=== PATIENT | female | born 1970 | race Caucasian/White ===

== ENCOUNTER 2022-12-11 10:46 | Day surgery (SDC) | payer OTHER, SELFPAY ==
--- NOTE | 2022-12-11 | PATH_ITS ---
[facility] Accession Number: [id number] No. of containers..04 Tissue . 01 Material submitted: . PART A: jejunum - JEJUNUM PART B: gastrointestinal site - GASTRIC POUCH PART C: colon - DESCENDING COLON PART D: rectosigmoid junction - RECTOSIGMOID . 01 Diagnosis: A. Jejunum, Biopsy: Small bowel-type mucosa with focal erosion, villous blunting, and mildly increased intraepithelial lymphocytes. No dysplasia or malignancy. See comment. . B. Gastric Pouch, Biopsy: Gastric mucosa with minimal chronic nonspecific inflammation. No Helicobacter pylori organisms identified on immunohistochemical evaluation. No intestinal metaplasia, dysplasia, or malignancy identified. . C. Descending Colon, Biopsy: Colonic mucosa with benign lymphoid aggregate, but with no other significant diagnostic alterations. No evidence of colitis or neoplasm. . D. Rectosigmoid, Biopsy: Polypoid colonic mucosa with no neoplasm identified, consistent with mucosal redundancy. No evidence of colitis. [facility] 12/15/2022 1431 Local . 01 Comment: Part A: The findings are non-specific. Differential includes NSAID-induced injury and an infectious etiology. The features also raise the possibility of celiac disease in the appropriate clinical setting.If celiac disease is suspected clinically, correlation with serologic studies is recommended. Clinical correlation is recommended. A repeat biopsy after resolution of inflammation may be helpful for further evaluation and if clinically indicated. . 01 Electronically signed: . Tamiko Lino MD, Pathologist NPI- [id number] . 01 Gross description: . Part A: JEJUNUM: Received in formalin is 1 fragment(s) of ramírez, soft tissue measuring 0.2 x 0.2 x 0.2 cm submitted entirely in 1 cassette(s) Part B: GASTRIC POUCH: Received in formalin are 3 fragment(s) of ramírez, soft tissue measuring 0.1 x 0.1 x 0.1 cm to 0.2 x 0.2 x 0.2 cm submitted entirely in 1 cassette(s) Part C: DESCENDING COLON: Received in formalin are 2 fragment(s) of ramírez, soft tissue measuring 0.1 x 0.1 x 0.1 cm to 0.2 x 0.2 x 0.2 cm submitted entirely in 1 cassette(s) Part D: RECTOSIGMOID: Received in formalin is 1 fragment(s) of ramírez, soft tissue measuring 0.3 x 0.3 x 0.3 cm submitted entirely in 1 cassette(s) /LOIDA 12/12/2022 1832 Local . 01 Microscopic: . B. An immunohistochemical stain was performed to evaluate for Helicobacter organisms and is negative. The control stain showed appropriate reactivity. . * This test was developed and its performance characteristics determined by [facility]. It has not been cleared or approved by the U.S. Food and Drug Administration. The FDA has determined that such clearance or approval is not necessary. This test is used for clinical purposes. It should not be regarded as investigational or for research. . 01 Pathologist provided ICD-10: K29.80, K31.89, K29.30, K63.89 . 01 CPT . 412098, 052413, 952795, 929516, P30658 Specimen Comment: A courtesy copy of this report has been sent to [phone] Performed at: 01 [facility] [address] [place] [address], [place], [place] [id number] MD Reuben Alex MD Phone: [phone]
[2022-12-11 11:26] VITALS: BP 129/82; PULSE 94; RESP 17; TEMP 36.2; O2SAT 100; BMI 34.4
--- NOTE | 2022-12-11 11:34 | P.HP_ITS ---
History of Present Illness History of Present Illness Date Patient Seen: 12/11/22 Time Patient Seen: 11:34 Chief complaint: EGD/Colonoscopy Narrative: I reviewed my recent office note. No significant changes. PFSH Medical History Pacemaker Surgical History Gastric bypass status for obesity H/O: hysterectomy Hx of tonsillectomy Meds Home Medications and Allergies Home Medications Medication Instructions Recorded Confirmed Type Suboxone 0.02 mg PO DAILY 12/11/22 12/11/22 History amitriptyline 25 mg PO DAILY 12/11/22 12/11/22 History gabapentin 200 mg PO BID 12/11/22 12/11/22 History metoprolol succinate 25 mg PO DAILY 12/11/22 12/11/22 History Allergies Allergy/AdvReac Type Severity Reaction Status Date / Time codeine Allergy Hallucinati Verified 12/11/22 11:24 ng morphine Allergy Hallucinati Verified 12/11/22 11:24 ng Sulfa (Sulfonamide Allergy Rash Verified 12/11/22 11:18 Antibiotics) Review of Systems Review of Systems ROS: Yes All systems reviewed with the patient and are negative except as otherw ise documented Exam Const General: cooperative HENMT Head: normal to inspection Eyes General: appearance normal, both eyes and all related structures Neck Neck: normal visual inspection Chest Chest: normal inspection of the chest Resp Effort & Inspection: normal respiratory effort Cardio Rate: regular rate GI Inspection: normal to inspection Skin General: no rashes or lesions noted Neuro General: patient alert and patient awake Extrem General: normal to inspection and no pedal edema Psych Appearance: grossly normal Assessment & Plan Assessment & Plan narrative: 52-year-old female with a history of gastric bypass, iron-deficiency anemia. EGD and colonoscopy are pursued today.
--- NOTE | 2022-12-11 11:34 | PM.PREOP ---
Pre-operative Note Interval Note History & Physical reviewed/Exam performed by Physician: Yes Changes to H&P: No ASA Class (for procedural sedation): III
[2022-12-11] MEDS: LACTATED RINGERS 1,000 ML 100 ML IV (11:37)
--- NOTE | 2022-12-11 14:04 | P.OP.EGD&C_ITS ---
Operative Date/Time/Diagnoses Date of procedure: 12/11/22 Time of procedure: 14:04 Pre-op diagnosis: Iron-deficiency anemia Post-op diagnosis: same Procedure & Clinicians Study performed: EGD with biopsies and colonoscopy with biopsies and cold snare polypectomy Same procedure as scheduled: Yes Indications: Iron-deficiency anemia Surgeon: Mat Puente Procedure Notes SCOAP/Timeout: Done Procedure in detail: After the risks and benefits were explained, written and verbal informed consent was obtained. The patient was brought into the procedure room and placed into the left lateral decubitus position. Please see anesthesia notes for sedation details. The scope was introduced into the mouth through the bite block and advanced under direct visualization to what appeared to be the efferent limb. The scope was slowly withdrawn carefully examining the mucosa for any defects or lesions. Retroflexed views were accomplished in the stomach. The stomach was decompressed, the scope was then removed from the patient who tolerated the procedure well. The patient was then turned around a digital rectal examination accomplished. The scope was introduced into the rectum and advanced to the cecum as identified by the appendiceal orifice and ileocecal valve. The scope was slowly withdrawn to carefully examine the mucosa for any defects or lesions. Multiple direct views were made through the dentate line for exclusion of pathology. The colon was decompressed scope removed from the patient who tolerated the procedure well. Pediatric colonoscope Bowel prep adequate Scope withdrawal time: 9 minutes Sedation minutes: 34 Complications: none Impression: 1. Esophagus: The squamocolumnar junction correlated with the top of the gastric folds. GEJ was at 35 cm from the incisors. No acute erosive changes no strictures no mass lesions. The esophagus was unremarkable. 2. Gastric pouch: The patient had a normal-sized gastric pouch. The mucosa in the gastric pouch was rather erythematous. Biopsies were acquired for histopathologic analysis and exclusion of H pylori. The GJ anastomosis was widely patent. There was a single retained suture that could be seen on the gastric side. No stenosis. 3. Afferent limb: I could not confidently identify the afferent limb. There ap peared to be some retained food debris in this location in addition to mucosal exudate that appeared to be from a pill that has recently dissolved in this area. This obscured much of the mucosal examination. I therefore could not identify a clear-cut lumen that would be consistent with an afferent limb. 4. Efferent limb colon the exudate and some degree of mucosal friability seemed to extend into what I believe was the afferent limb. A couple of biopsies were taken from the mucosa for histopathologic analysis at this location. 5. Terminal ileum: This appeared visually normal. 6. Colon: There was some mild scattered erythema throughout the left colon. Random biopsies were taken from descending colon for histopathologic analysis. No ulcerations were evident. There was a small 5-6 mm polyp at the rectosigmoid removed with cold snare. The patient had grade 2-3 internal nonbleeding nonthrombosed hemorrhoids. Endoscopic diagnosis 1. Gastric bypass anatomy 2. Friable GJ anastomosis and jejunal mucosa (on the jejunal side of said anastomosis). 3. Nonvisualized afferent limb 4. Gastropathy 5. Colon polyp 6. Hemorrhoids 7. Mild colonic erythema Post-procedure Plan for aftercare: 1. Await histopathology. 2. Contingent on histopathology, repeat EGD in the next 8 weeks would be appropriate to confirm mucosal healing. 3. Timing of repeat colonoscopy will be contingent on polyp histology. Disposition: PACU
[2022-12-11 14:08] VITALS: BP 118/76; PULSE 86; RESP 12; TEMP 36.2; O2SAT 97
[2022-12-11 14:15] VITALS: BP 117/79; PULSE 85; RESP 15; O2SAT 100
[2022-12-11 14:20] VITALS: BP 121/73; PULSE 83; RESP 14; O2SAT 100
[2022-12-11 14:24] VITALS: BP 131/73; PULSE 87; RESP 22; O2SAT 100
== END 2022-12-11 14:42 | disposition home or self-care (01) ==
PROVIDERS: PCP Family Medicine; Referring Provider Internal Medicine Gastroenterology; Visit Provider Internal Medicine Gastroenterology
PROC: 0DJ08ZZ Inspection of Upper Intestinal Tract, Via Natural or Artificial Opening Endoscopic (ICD-10-PCS; CPT 43235; principal; 2022-12-11 12:30)
PROC: 0DJD8ZZ Inspection of Lower Intestinal Tract, Via Natural or Artificial Opening Endoscopic (ICD-10-PCS; CPT 45378; 2022-12-11 12:30)
DX: D50.9 Iron deficiency anemia, unspecified (principal); Z98.84 Bariatric surgery status; K64.2 Third degree hemorrhoids; K31.9 Disease of stomach and duodenum, unspecified; K29.50 Unspecified chronic gastritis without bleeding; K63.5 Polyp of colon
CPT/HCPCS: 45385; 45380; 43239; J2704

== ENCOUNTER 2023-01-22 13:16 | Emergency (ER) | payer OTHER, SELFPAY ==
[2023-01-22 13:23] VITALS: BP 138/82; PULSE 112; RESP 16; TEMP 36.9; O2SAT 99; BMI 33.0
--- NOTE | 2023-01-22 17:34 | ED.BACK ---
HPI - Back Pain/Injury <Yanet Smith PA-C - Last Filed: 01/22/23 18:15> General Chief Complaint: Back Pain/Injury Stated Complaint: pain Lower back down to feet Time Seen by Provider: 01/22/23 13:33 History of Present Illness HPI Narrative: 52-year-old female with chronic lower back pain presents to the ED with 5 days of lower back pain radiating down to bilateral legs. Patient describes the pain as sharp, burning. Patient receives steroid injections every 7 months from her facilities painter for the back pain. Patient received an injection 7 days ago, following which patient started experiencing the lower back pain traveling down her legs. Patient states that prior to the injection, she never had pain traveling down to her legs. Patient denies numbness, tingling, weakness. Patient denies urinary hesitancy, urinary incontinence, bowel incontinence, saddle paresthesias. Patient states that the pain is bad enough that she is unable to bear weight and walk. Patient states that she was able to walk unassisted prior to the injection. Patient talked to her facilities painter earlier today who prescribed her Percocet, however patient did not get any relief from it. It turns out patient is on Suboxone, which is likely why the Percocet was not effective. Patient takes gabapentin currently, however only takes 200 mg once a day. It seems that her PCP has prescribed the gabapentin 400 mg twice a day, which patient was unaware of. Patient talked with her facilities painter earlier today, who sent her to the ED to rule out a spinal emergency. Related Data Home Medications Medication Instructions Recorded Confirmed Suboxone 0.02 mg PO DAILY 12/11/22 12/11/22 amitriptyline 25 mg PO DAILY 12/11/22 12/11/22 gabapentin 200 mg PO BID 12/11/22 12/11/22 metoprolol succinate 25 mg PO DAILY 12/11/22 12/11/22 Previous Rx's Medication Instructions Recorded gabapentin 300 mg capsule 300 mg PO TID #30 caps 01/22/23 Allergies Allergy/AdvReac Type Severity Reaction Status Date / Time codeine Allergy Hallucinati Verified 12/11/22 11:24 ng morphine Allergy Hallucinati Verified 12/11/22 11:24 ng Sulfa (Sulfonamide Allergy Rash Verified 12/11/22 11:18 Antibiotics) Review of Systems <Yanet Smith PA-C - Last Filed: 01/22/23 18:15> Review of Systems ROS Unobtainable: All systems reviewed & are unremarkable except as noted in HPI and below Constitutional Constitutional: Denies chills, Denies fatigue, Denies fever(s), Denies frequent falls, Denies lethargy and Denies weakness Eyes Eyes: Denies change in vision, Denies eye discharge, Denies irritation and Denies loss of vision ENT Ears, Nose, Mouth, and Throat: Denies change in voice, Denies dizziness, Denies neck pain, Denies sore throat and Denies throat swelling Cardiovascular Cardiovascular: Denies chest pain, Denies irregular heart rhythm, Denies lightheadedness, Denies palpitations, Denies dyspnea, Denies dyspnea on exertion and Denies orthopnea Respiratory Respiratory: Denies cough, Denies dyspnea, Denies dyspnea on exertion and Denies wheezing Gastrointestinal Gastrointestinal: Denies abdominal pain, Denies change in bowel habits, Denies diarrhea, Denies nausea and Denies vomiting Genitourinary Genitourinary: Denies hematuria, Denies flank pain, Denies urinary incontinence and Denies urinary urgency Musculoskeletal Musculoskeletal: Reports back pain, Denies muscle weakness, Denies neck pain, Denies numbness, Reports radiating pain into limb and Denies tingling Integumentary/Breasts Skin/Breast: Denies pruritus, Denies erythema, Denies rash and Denies wounds Neurologic Neurologic: Denies behavioral changes, Denies confusion, Denies dizziness, Denies frequent falls, Denies loss of vision, Denies numbness, Denies tingling and Denies weakness Psychiatric Psychiatric: Denies anxiety, Denies behavioral changes, Denies confusion, Denies depression, Denies homicidal ideation and Denies suicidal ideation Endocrine Endocrine: Denies fatigue, Denies flushing and Denies palpitations Hematologic/Lymphatic Hematologic/Lymphatic: Denies easy bruising Allergic/Immunologic Allergic/Immunologic: Denies urticaria, Denies throat swelling and Denies wheezing Patient History <Yanet Smith PA-C - Last Filed: 01/22/23 18:15> Medical History Pacemaker Surgical History Gastric bypass status for obesity H/O: hysterectomy Hx of tonsillectomy Social History household members: spouse Smoking Status: Never smoker Smoking Status: Never smoker alcohol intake frequency: a few times a week Substance Use Type: does not use Exam <Yanet Smith PA-C - Last Filed: 01/22/23 18:15> Narrative Exam Narrative: Const General:?cooperative, healthy appearing and comfortable [facility] Head:?normal to inspection Ears:?hearing grossly normal bilaterally Nose:?external nose normal Face and sinus:?normal facial exam and sinuses nontender Mouth:?oral mucosae normal Throat:?posterior oropharynx normal Eyes General:?appearance normal, both eyes and all related structures Neck Neck:?normal visual inspection and no lymphadenopathy noted Resp Effort & Inspection:?normal respiratory effort Auscultation:?clear to auscultation bilaterally Cardio Rate:?regular rate Rhythm:?regular rhythm Musculoskeletal No midline tenderness to palpation. No paraspinal tenderness to palpation. There is full range of motion. Strength and sensation is intact. Patient is neurovascularly intact. Neuro General:?patient alert, patient awake and patient oriented x3; CN 1 through 12 intact. PERRLA. Patient unable to walk due to pain. Initial Vital Signs Initial Vital Signs: Vital Signs Temperature 98.4 F 01/22/23 13:23 Pulse Rate 112 H 01/22/23 13:23 Respiratory Rate 16 01/22/23 13:23 Blood Pressure 138/82 01/22/23 13:23 Pulse Oximetry 99 01/22/23 13:23 Oxygen Delivery Method Room Air 01/22/23 13:23 Const General: cooperative [facility] Head: normocephalic and atraumatic Ears: external ears normal and TM's normal bilaterally Nose: external nose normal and No nasal discharge Face and sinus: sinuses nontender, face symmetric, no sinus tenderness and No dry mucous membranes Mouth: oral mucosae normal and moist mucous membranes Teeth and gingiva: dentition normal Throat: tonsils normal and uvula midline Eyes General: Yes appearance normal, both eyes and all related structures Eyelids: eyelids normal Conjunctivae: conjunctivae normal Sclera: sclerae normal Pupils: PERRL EOM: EOM intact bilaterally Neck Neck: normal visual inspection, trachea midline, No lymphadenopathy, No midline deformity and No JVD Lymphatic: No lymphedema Chest Chest: normal inspection of the chest Resp Effort & Inspection: normal respiratory effort, able to speak in complete sentences, no respiratory distress and no use of accessory muscles Auscultation: clear to auscultation bilaterally, no rales, no rhonchi and no wheezes Cardio Rate: regular rate Rhythm: regular rhythm Heart Sounds: no click, no gallops, no murmurs and no rubs Pulses: normal peripheral pulses GI Inspection: non-distended Palpation: soft, no hepatosplenomegaly, No guarding, No pulsatile mass and No tender Auscultation: normal bowel sounds Back/Spine/Pelvis Back: No CVA tenderness Cervical Spine: cervical ROM normal and No pain with cervical ROM Thoracic/Lumbar Spine: thoracic and lumbar spine normal to inspection Skin General: no rashes or lesions noted, No jaundice and No petechiae Neuro General: patient alert, patient oriented x3, gait normal and no focal motor deficits Speech: speech normal Extrem General: full ROM, no clubbing, cyanosis or edema, no pedal edema and no calf tenderness Psych Appearance: well kempt Mental Status: mental status grossly normal Attitude: cooperative Thought Content: normal and suicidality Judgment: judgment good <Edin Cisneros MD - Last Filed: 01/23/23 07:10> Initial Vital Signs Initial Vital Signs: Vital Signs Temperature 98.4 F 01/22/23 13:23 Pulse Rate 112 H 01/22/23 13:23 Respiratory Rate 16 01/22/23 13:23 Blood Pressure 138/82 01/22/23 13:23 Pulse Oximetry 99 01/22/23 13:23 Oxygen Delivery Method Room Air 01/22/23 13:23 Course <Yanet Smith PA-C - Last Filed: 01/22/23 18:15> Vital Signs Vital signs: Vital Signs - 8 hr 01/22/23 13:23 Temperature 98.4 F Pulse Rate 112 H Respiratory Rate 16 Blood Pressure 138/82 Pulse Oximetry 99 Oxygen Delivery Method Room Air <Edin Cisneros MD - Last Filed: 01/23/23 07:10> Vital Signs Vital signs: Vital Signs - 8 hr 01/22/23 13:23 Temperature 98.4 F Pulse Rate 112 H Respiratory Rate 16 Blood Pressure 138/82 Pulse Oximetry 99 Oxygen Delivery Method Room Air MDM - Back Pain/Injury <MACI Sheridan Last Filed: 01/22/23 18:15> [facility] Narrative Medical decision making narrative: 52-year-old female with chronic lower back pain presents to the ED with 5 days of lower back pain radiating down to bilateral legs. Physical exam and history are reassuring, there are no red flags that indicate a spinal emergency. Recommend patient up her dose of gabapentin, take 300 mg 3 times a day. Explained to the patient why the Percocet was not as effective since she was on Suboxone. Recommend follow-up with her facilities painter and primary care doctor as soon as possible. ED return precautions were discussed with patient. Patient verbalized understanding. Medical records reviewed: Yes Discharge Plan Departure Patient Disposition: Home Clinical Impression: Sciatica Instructions: DI for Back Pain With Sciatica Activity Restrictions/Additional Instructions: You were evaluated in the ED today for lower back pain. It sounds like you are having some nerve pain status post the nerve block and injection you received last week from your facilities painter. It is reassuring that you were seen at the ED in [place] and had a normal CT scan. Your physical exam and history is also reassuring and it does not appear that you are having a neurosurgical emergency. Since you are taking Suboxone, opioid medications will be ineffective for pain relief. This is likely why the Percocet prescribed to you yesterday did not provide adequate pain relief. You may increase the dose of gabapentin which is found to be quite effective for nerve pain. You may take 300 mg 3 times a day. Please follow-up with your pain management doctor and your primary care doctor as soon as possible for further evaluation and treatment. Return to the ED if you experience urinary difficulties, numbness, tingling, weakness. Prescriptions: New gabapentin 300 mg capsule 300 mg PO TID Qty: 30 0RF No Action Suboxone 0.02 mg PO DAILY amitriptyline 25 mg PO DAILY gabapentin 200 mg PO BID metoprolol succinate 25 mg PO DAILY Referrals: Keira Galindo DO [Primary Care Provider] - Stand Alone Forms: Patient Portal/API <Edin Cisneros MD - Last Filed: 01/23/23 07:10> Cosign ED Attending Biancaature Attestation: I was immediately available in the department for consultation. ?This documentation has been reviewed and I agree with assessment and plan. Supervised by Edin Cisneros MD
== END 2023-01-22 14:14 | disposition home or self-care (01) ==
PROVIDERS: Emergency Provider Student in an Organized Health Care Education/Training Program; PCP Family Medicine
DX: M54.32 Sciatica, left side (principal); M54.31 Sciatica, right side
CPT/HCPCS: 99281

== ENCOUNTER 2023-02-21 11:11 | Day surgery (SDC) | payer OTHER, SELFPAY ==
--- NOTE | 2023-02-21 | PATH_ITS ---
[facility] Accession Number: [id number] No. of containers..01 Tissue . 01 Material submitted: . jejunum - JEJUNAL . 01 Diagnosis: Jejunum, Biopsy: Small bowel mucosa with no significant diagnostic abnormality. Negative for active inflammation, dysplasia, and malignancy. MRV 02/28/2023 1249 Local . 01 Electronically signed: . Emily Schwartz MD, Pathologist NPI- [id number] . 01 Gross description: . The specimen is received in formalin labeled with the patient's name, , and jejunal, and consists of two ramírez soft tissue fragments ranging from 0.2 cm to 0.6 cm in greatest dimension. Submitted entirely in cassette A1. ([id number]) /FRR 02/24/2023 1718 Local . 01 Pathologist provided ICD-10: D50.9 . 01 CPT . 511845 Specimen Comment: A courtesy copy of this report has been sent to [phone] Performed at: 01 [facility] [address] [place] [id number] MD Reuben Alex MD Phone: [phone]
[2023-02-21 11:37] VITALS: BP 140/79; PULSE 87; RESP 18; TEMP 36.1; O2SAT 97; BMI 31.9
[2023-02-21] MEDS: LACTATED RINGERS 1,000 ML 84 ML IV (11:50)
--- NOTE | 2023-02-21 12:15 | PM.HP.1 ---
History of Present Illness History of Present Illness Chief complaint: EGD Narrative: Iron deficiency anemia with distant history of gastric bypass. Need for further workup PFSH Medical History Pacemaker Surgical History Gastric bypass status for obesity H/O: hysterectomy Hx of tonsillectomy Social History household members: spouse Smoking Status: Never smoker alcohol intake: current Meds Home Medications and Allergies Home Medications Medication Instructions Recorded Confirmed Type Suboxone 0.02 mg PO DAILY 12/11/22 02/21/23 History metoprolol succinate 25 mg PO DAILY 12/11/22 02/21/23 History amitriptyline 100 mg tablet 10 mg PO DAILY 02/21/23 02/21/23 History ciprofloxacin HCl 500 mg tablet 500 mg PO DAILY 02/21/23 02/21/23 History ergocalciferol (vitamin D2) 1,250 1,250 mcg PO DAILY 02/21/23 02/21/23 History mcg (50,000 unit) capsule gabapentin 300 mg capsule 400 mg PO BID 02/21/23 02/21/23 History meloxicam 7.5 mg tablet 7.5 mg PO DAILY 02/21/23 02/21/23 History phenazopyridine 100 mg tablet 100 mg PO DAILY 02/21/23 02/21/23 History rizatriptan 10 mg tablet 10 mg PO PRN PRN Migraine Headache 02/21/23 02/21/23 History Allergies Allergy/AdvReac Type Severity Reaction Status Date / Time codeine Allergy Hallucinati Verified 02/21/23 11:31 ng morphine Allergy Hallucinati Verified 02/21/23 11:31 ng Sulfa (Sulfonamide Allergy Rash Verified 02/21/23 11:31 Antibiotics) Exam Vital Signs (past 8 hours): - 02/21/23 11:37 Temperature 96.9 F L Pulse Rate 87 Respiratory Rate 18 Blood Pressure 140/79 Pulse Oximetry 97 Oxygen Delivery Method Room Air Oxygen Delivery Method Room Air Narrative Exam Narrative: Oropharynx free of lesions Chest clear to auscultation percussion Cardiac exam reveals no S3 or murmur Assessment & Plan Assessment & Plan narrative: Iron deficiency anemia need for further workup with EGD and colonoscopy. Risks, benefits, alternatives have been explained.
--- NOTE | 2023-02-21 12:18 | PM.OP.EGD ---
Operative Date/Time/Diagnoses Date of procedure: 02/21/23 Pre-op diagnosis: See indication and findings Procedure & Clinicians Study performed: EGD Indications: Iron deficiency anemia with history of gastric bypass Procedure Notes Procedure in detail: After informed consent was obtained the patient was placed in left lateral decubitus position. The video pediatric colonoscope was placed into the oropharynx and with the patient's help swallowed into the esophagus. The esophagus stomach and duodenum were carefully examined. On withdrawal, retroflexed view the GE junction was performed. Scope was removed. The patient tolerated procedure well. Blood loss none Complications none Sedation mac Findings 1. Normal esophagus 2. 5 cm long jovanny stomach 3. Normal 1st 15 cm of jejunum evaluated other than a mild inflammatory erythematous pattern in a reticular fashion biopsies taken 4. Unable to pass the scope any further. I will leave it up to Dr. Arora if he wants to schedule her for colonoscopy. We will be in touch regarding her biopsies.
[2023-02-21 12:49] VITALS: BP 105/66; PULSE 72; RESP 18; TEMP 36.5; O2SAT 90
[2023-02-21 12:54] VITALS: BP 107/67; PULSE 79; RESP 15; O2SAT 99
[2023-02-21 13:00] VITALS: BP 104/73; PULSE 81; RESP 17; O2SAT 96
[2023-02-21 13:05] VITALS: BP 104/74; PULSE 74; RESP 14; TEMP 36.3; O2SAT 98
== END 2023-02-21 13:11 | disposition home or self-care (01) ==
PROVIDERS: PCP Family Medicine; Referring Provider Internal Medicine Gastroenterology; Visit Provider Internal Medicine Gastroenterology
PROC: 0DJ08ZZ Inspection of Upper Intestinal Tract, Via Natural or Artificial Opening Endoscopic (ICD-10-PCS; CPT 43235; principal; 2023-02-21 12:30)
DX: D50.9 Iron deficiency anemia, unspecified (principal)
CPT/HCPCS: 43239; J2704

== ENCOUNTER → 2024-01-04 12:36 | Outpatient (CLI) | payer OTHER, SELFPAY ==
--- NOTE | 2024-01-04 12:38 | DI.RAD.S_ITS ---
PROCEDURE: FL UPPER GI SMALL BOWEL INDICATIONS: CHRONIC VOMITING/MALABSORPTION/WT LOSS COMPARISON: None. 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 No suspicious abdominal calcifications. Visualized solid organ contours appear normal in size. No suspicious bony abnormalities. Esophagus: There is normal mucosal pattern and normal esophageal peristalsis. There is mild segment narrowing of the distal esophagus at the gastroesophageal junction. No extrinsic mass effects or diverticula. No hiatal hernias or elicited gastroesophageal reflux. There is normal transit of a calibrated barium tablet through the esophagus. Stomach: Postsurgical changes for gastric bypass. The remnant stomach is unremarkable. No mucosal masses or ulcers. There pylorus and duodenal bulb are not visualized. Small bowel: There is gastrojejunostomy. There is transit time of barium through the small intestine is delayed. Proximal small bowel loops appear normal in caliber Jejunal folds are normal in morphology and thickness. There is severe short segment focal narrowing of the terminal ileum. In addition, there is diffuse colonic wall irregularity and narrowing involving the cecum, ascending colon, hepatic flexure, transverse colon and splenic flexure. Distal colonic haustral pattern is also abnormal. No intraluminal masses or extrinsic mass effects. IMPRESSION: 1. Short segment focal narrowing of the terminal ileum. In addition, there is diffuse wall irregularity and luminal narrowing of the proximal colon from cecum to the splenic flexure. The distal colonic haustral pattern is also abnormal. The findings are highly suggestive of inflammatory bowel disease such as Crohn disease. Recommend endoscopic examination. 2. Mild segmental narrowing of the distal esophagus. There is no esophageal obstruction. No hiatal hernia or gastroesophageal reflux elicited during the examination. 3. Postsurgical changes with gastric bypass. Dictated by: Gerardo Mike M.D. on 01/04/2024 at 22:42 Approved by: Gerardo Mike M.D. on 01/05/2024 at 19:24
== END ==
PROVIDERS: PCP Family Medicine; Referring Provider Family Medicine; Visit Provider Family Medicine
DX: K22.2 Esophageal obstruction (principal); K56.699 Other intestinal obstruction unspecified as to partial versus complete obstruction; K76.0 Fatty (change of) liver, not elsewhere classified; K90.89 Other intestinal malabsorption; R11.10 Vomiting, unspecified; Z98.84 Bariatric surgery status
CPT/HCPCS: 74240; 74248

== ENCOUNTER 2025-06-02 21:54 | Emergency (ER) | payer OTHER, SELFPAY ==
[2025-06-02 22:11] VITALS: BP 126/74; PULSE 114; RESP 18; TEMP 37.6; O2SAT 100; BMI 29.0
[2025-06-02 23:00] VITALS: BP 133/83; O2SAT 97
--- NOTE | 2025-06-02 23:13 | EKG_ITS ---
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
[2025-06-02 23:30] VITALS: BP 114/72; PULSE 98; O2SAT 96
[2025-06-02 23:35] LABS: Add Manual Diff / Slide Review NO; Hematocrit 34.1 % (36-46); Hemoglobin 11.0 g/dL (12.0-16.0); Lymphocytes Absolute Auto 1600 /uL (1100-4500); Mean Corpuscular HGB Conc 32.3 % (30-36); Mean Corpuscular Hemoglobin 33.8 PG (26-34); Mean Corpuscular Volume 104.6 fL (80-100); Platelet Count 246 X10^3/uL (150-400)
[2025-06-02 23:48] LABS: Alanine Aminotransferase 55 IU/L (<35); Albumin 3.0 g/dL (3.5-5.0); Albumin Globulin Ratio 1.0 (1.0-2.8); Alkaline Phosphatase 370 U/L (38-126); Blood Urea Nitrogen 9 mg/dL (7-17); Calcium 8.4 mg/dL (8.4-10.2); Carbon Dioxide 28 mmol/L (22-32); Chloride 101 mmol/L (98-107); Estimated Glomerular Filt Rate > 60 mL/min (>60); Globulin 3.1 g/dL (1.7-4.1); Glucose 119 mg/dL (70-99); HEMOLYSIS < 15 (0-50); Lipase 49 U/L (23-300); Potassium 3.1 mmol/L (3.4-5.1); Sodium 132 mmol/L (137-145); Total Protein 6.1 g/dL (6.3-8.2)
[2025-06-03] VITALS: BP 106/69; PULSE 99; O2SAT 96
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
--- NOTE | 2025-06-03 00:19 | DI.CT.S_ITS ---
PROCEDURE: CT HEAD/BRAIN WO CON INDICATIONS: fall TECHNIQUE: Noncontrast 4.5 mm thick angled axial sections acquired from the foramen magnum to the vertex, with coronal and sagittal reformats. For radiation dose reduction, the following was used: automated exposure control, adjustment of mA and/or kV according to patient size. COMPARISON: None. FINDINGS: Image quality: Diagnostic. CSF spaces: Basal cisterns are patent. No extra-axial fluid collections. Ventricles are normal in size and shape. Brain: No midline shift. No intracranial mass effect or hemorrhage. Marc[place]- white matter interface is normal. Diffuse cerebral volume loss. Skull and face: Calvarium and visualized facial bones are intact, without suspicious lesions. Sinuses: Visualized sinuses and mastoids are clear. IMPRESSION: No acute intracranial pathology. Dictated by: Luis Monroe M.D. on 06/03/2025 at 0:57 Approved by: Luis Monroe M.D. on 06/03/2025 at 0:59
--- NOTE | 2025-06-03 00:19 | DI.CT.S_ITS ---
PROCEDURE: CT CERVICAL SPINE WO CON INDICATIONS: fall TECHNIQUE: Noncontrast 3 mm thick sections acquired from the skull base to the T4 level. Sagittal and coronal reformats were then constructed. For radiation dose reduction, the following was used: automated exposure control, adjustment of mA and/or kV according to patient size. COMPARISON: None. FINDINGS: Image quality: Excellent. Bones: No fractures or dislocations. Visualized superior ribs are intact. Multilevel degenerative disc disease most pronounced at C5-C6. Soft tissues: Prevertebral soft tissues are normal in thickness. No paravertebral hematomas. No apical pneumothoraces. IMPRESSION: No displaced fracture or traumatic subluxation. Dictated by: Luis Monroe M.D. on 06/03/2025 at 0:59 Approved by: Luis Monroe M.D. on 06/03/2025 at 1:01
--- NOTE | 2025-06-03 00:19 | DI.CT.S_ITS ---
PROCEDURE: CT LUMBAR SPINE WO CON INDICATIONS: fall/neuro sxs TECHNIQUE: Noncontrast 3 mm thick sections acquired from the T12 level to the sacrum. Sagittal and coronal reformats were constructed. For radiation dose reduction, the following was used: automated exposure control. COMPARISON: None. FINDINGS: Image quality: Excellent. Bones: There is normal bony alignment. No acute vertebral body compression fractures. No suspicious lytic or blastic bony lesions. No pars defects. Severe height loss and disc disease at L5-S1 but no osseous foraminal or central canal narrowing. Soft tissues: No retroperitoneal masses or hematomas. Visualized aorta is normal in caliber. IMPRESSION: No acute fracture or traumatic malalignment. Dictated by: Luis Monroe M.D. on 06/03/2025 at 1:05 Approved by: Luis Monroe M.D. on 06/03/2025 at 1:07
--- NOTE | 2025-06-03 00:19 | DI.CT.S_ITS ---
PROCEDURE: CT THORACIC SPINE WO CON INDICATIONS: fall/neuro sx TECHNIQUE: Noncontrast 3 mm thick sections acquired through the region of interest in the thoracic spine. Sagittal and coronal reformats were then constructed. For radiation dose reduction, the following was used: automated exposure control. COMPARISON: None. FINDINGS: Image quality: Excellent. Bones: There is normal overall bony alignment. No acute vertebral body compression fractures. No suspicious sclerotic or lytic bony lesions. Central spinal canal is of normal overall caliber. Mild multilevel facet arthropathy and degenerative disc disease.. Soft tissues: No paravertebral masses or hematomas. Visualized posteromedial lungs appear clear. Hepatic steatosis. Postsurgical changes of the stomach. Cardiac pacemaker. IMPRESSION: No acute fracture or traumatic malalignment. Dictated by: Luis Monroe M.D. on 06/03/2025 at 1:01 Approved by: Luis Monroe M.D. on 06/03/2025 at 1:03
[2025-06-03 01:00] VITALS: PULSE 100; O2SAT 98
[2025-06-03 01:30] VITALS: PULSE 100; O2SAT 99
[2025-06-03 02:00] VITALS: PULSE 99; O2SAT 100
[2025-06-03] MEDS: SODIUM CHLORIDE 0.9% 1,000 ML 1000 ML IV (02:00)
[2025-06-03 02:52] VITALS: BP 116/76
[2025-06-03] MEDS: KETOROLAC 30 MG/ML VIAL 15 MG IV (03:35)
== END 2025-06-03 03:39 | disposition short-term general hospital (02) ==
PROVIDERS: Emergency Medicine; Emergency Provider Family Medicine; PCP Family Medicine
DX: G83.4 Cauda equina syndrome (principal); W01.0XXA Fall on same level from slipping, tripping and stumbling without subsequent striking against object, initial encounter
CPT/HCPCS: 36415; 70450; 72125; 72128; 72131; 80053; 83690; 85025; 93005; 93010; 96361; 96374; 99284; J1885; J7030

== ENCOUNTER 2025-07-21 16:10 | Emergency (ER) | payer OTHER, SELFPAY ==
[2025-07-21 16:18] VITALS: BP 126/85; PULSE 95; RESP 18; TEMP 36.2; O2SAT 99; BMI 29.7
--- NOTE | 2025-07-21 16:25 | ED.LOWEXIN ---
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 She was hospitalized at [facility] for 1 month and was discharged June 30. She has recovered much of her strength but now complains of lower leg swelling and discomfort over the last 3 days along with left hand pain and slight swelling. No injury. No fever, chills or warmth to the extremities. Related Data Home Medications ?Medication ?Instructions ?Recorded ?Confirmed Suboxone 0.02 mg PO DAILY 12/11/22 12/27/23 amitriptyline 100 mg tablet 10 mg PO DAILY 02/21/23 12/27/23 meloxicam 7.5 mg tablet 7.5 mg PO DAILY 02/21/23 12/27/23 estradiol [Vagifem] vaginal 12/27/23 12/27/23 gabapentin 400 mg capsule 400 mg PO BID 12/27/23 12/27/23 Allergies Allergy/AdvReac Type Severity Reaction Status Date / Time codeine Allergy Hallucinati Verified 07/21/25 16:18 ng morphine Allergy Hallucinati Verified 07/21/25 16:18 ng Sulfa (Sulfonamide Allergy Rash Verified 07/21/25 16:18 Antibiotics) Review of Systems Review of Systems ROS Unobtainable: All systems reviewed & are unremarkable except as noted in HPI and below Musculoskeletal Musculoskeletal: Reports as per HPI Patient History Medical History (Updated 07/21/25 @ 20:55 by Lamont Epps MD) Gross hematuria Postmenopausal atrophic vaginitis Recurrent urinary tract infection Pacemaker Surgical History (Updated 12/27/23 @ 14:32 by Edin Sands MD) History of appendectomy Gastric bypass status for obesity Hx of tonsillectomy H/O: hysterectomy Social History household members: spouse Smoking Status: Never smoker alcohol intake: current alcohol intake frequency: a few times a week Exam Narrative Exam Narrative: General: Alert and conversant. No distress. Appears well nourished and well hydrated Craniofacial: No evidence of trauma. Nontender and no swelling. Eyes: PERRLA EOMI conjunctiva clear Lungs: Clear to auscultation with good air movement. No wheezing, rales or rhonchi. No respiratory distress Cardiac: Regular rate and rhythm with no appreciable murmur or gallop Musculoskeletal: Bilateral lower leg edema of 1 to 2+. Diffuse mild tenderness with no specific calf tenderness. Both calves measure 41.5 cm. Left hand tenderness with slight swelling but no bony deformity or discoloration. Otherwise Exam of the extremities, axial spine and ribcage reveals no deformity, bony tenderness or swelling. Range of motion intact Neuro: Alert and oriented. Cranial nerves, motor, sensory and cerebellar all grossly intact. No focal deficit Skin: Warm and normal color. No rashes Psychological: Normal affect and interaction. No evidence of delusion or psychosis. Normal mood. Initial Vital Signs Initial Vital Signs: Vital Signs Temperature 97.2 F L 07/21/25 16:18 Pulse Rate 95 H 07/21/25 16:18 Respiratory Rate 18 07/21/25 16:18 Blood Pressure 126/85 07/21/25 16:18 Pulse Oximetry 99 07/21/25 16:18 Oxygen Delivery Method Room Air 07/21/25 16:18 Course Orders Ordered: ED Orders 07/21/25 16:54 CBC Auto Diff [Complete Blood Count AUTO DIFF] Stat CMP [Comprehensive Metabolic Panel] Stat D Dimer Stat ESR [Erythrocyte Sedimentation Rate] Stat 07/21/25 19:39 US periph venous low extrem bi Stat Vital Signs Vital signs: Vital Signs - 8 hr 07/21/25 16:18 07/21/25 18:32 07/21/25 18:32 Temperature 97.2 F L Pulse Rate 95 H 88 Respiratory Rate 18 Blood Pressure 126/85 145/67 H Pulse Oximetry 99 95 Oxygen Delivery Method Room Air 07/21/25 18:59 07/21/25 19:00 07/21/25 21:01 Temperature Pulse Rate 85 76 Respiratory Rate 18 Blood Pressure 135/72 133/63 Pulse Oximetry 98 100 Oxygen Delivery Method Room Air MDM - Extremity Injury (Lower) Lab Data Attestation: I reviewed the patient's lab results. Lab results narrative: Slightly worsening anemia with hematocrit 28.4, hemoglobin 9.2 07/21/25 16:54 07/21/25 16:54 Labs: Lab Results 07/21/25 Range/Units 16:54 WBC 4.3 L (4.5-11.0) X10^3/uL RBC 3.00 L (4.0-5.2) X10^6/uL Hgb 9.2 L (12.0-16.0) g/dL Hct 28.4 L (36-46) % MCV 94.5 (80-100) fL MCH 30.7 (26-34) PG MCHC 32.5 (30-36) % RDW 16.7 H (11.6-14.8) % Plt Count 219 (150-400) X10^3/uL Neut % (Auto) 54.6 (50-75) % Lymph % (Auto) 38.3 (25-40) % [place] % (Auto) 5.2 (3-14) % Eos % (Auto) 1.5 L (2-4) % Baso % (Auto) 0.4 (0-2) % Neut # (Auto) 2300 (7203-7085) /uL Lymph # (Auto) 1600 (7912-8841) /uL [place] # (Auto) 200 (0-900) /uL Eos # (Auto) 100 (0-450) /uL Baso # (Auto) 0 (0-100) /uL ESR 31 H (0-20) MM/HR D-Dimer 819 H (<500) ng/ml Sodium 141 (137-145) mmol/L Potassium 3.7 (3.4-5.1) mmol/L Chloride 107 (98-107) mmol/L Carbon Dioxide 28 (22-32) mmol/L BUN 14 (7-17) mg/dL Creatinine 0.61 (0.52-1.04) mg/dL Estimated GFR > 60 (>60) mL/min BUN/Creatinine Ratio 23.0 H (6-22) Glucose 108 H (70-99) mg/dL Calcium 8.8 (8.4-10.2) mg/dL Total Bilirubin 0.5 (0.2-1.3) mg/dL AST 56 H (14-36) IU/L ALT 20 (<35) IU/L Alkaline Phosphatase 128 H (38-126) U/L Total Protein 6.4 (6.3-8.2) g/dL Albumin 3.5 (3.5-5.0) g/dL Globulin 2.9 (1.7-4.1) g/dL Albumin/Globulin Ratio 1.2 (1.0-2.8) Imaging Data US - DVT: Radiologist's Impression: Impression: No findings of deep venous thrombosis in either lower extremity. MDM Narrative Medical decision making narrative: Patient has reassuring lab work and negative venous duplex for DVT. Patient has lower leg edema from possible venous stasis or other cause. She also has slightly worsening chronic anemia. Plan will be leg elevation, compression hose and follow up closely with her doctor regarding edema and rechecking her anemia. Return to the ER if worse Discharge Plan Departure Patient Disposition: Home Clinical Impression: Leg edema, Anemia Instructions: Anemia, DI for Peripheral Edema -- Bilateral Activity Restrictions/Additional Instructions: Plan: Leg elevation as much as possible. Compression stockings. Limit salt intake. Follow up with your doctor for reassessment. Also follow up on anemia. Return to the ER if worse Prescriptions: No Action meloxicam 7.5 mg tablet 7.5 mg PO DAILY Patient Comments: take 1 tablet by mouth once daily with food or milk amitriptyline 100 mg tablet 10 mg PO DAILY Suboxone 0.02 mg PO DAILY gabapentin 400 mg capsule 400 mg PO BID estradiol [Vagifem] vaginal Referrals: Keiar Galindo DO [Primary Care Provider, Medical] Stand Alone Forms: Patient Portal/API
[2025-07-21 17:13] LABS: Add Manual Diff / Slide Review NO; Alanine Aminotransferase 20 IU/L (<35); Albumin 3.5 g/dL (3.5-5.0); Albumin Globulin Ratio 1.2 (1.0-2.8); Alkaline Phosphatase 128 U/L (38-126); Blood Urea Nitrogen 14 mg/dL (7-17); Calcium 8.8 mg/dL (8.4-10.2); Carbon Dioxide 28 mmol/L (22-32); Chloride 107 mmol/L (98-107); Estimated Glomerular Filt Rate > 60 mL/min (>60); Globulin 2.9 g/dL (1.7-4.1); Glucose 108 mg/dL (70-99); HEMOLYSIS < 15 (0-50); Hematocrit 28.4 % (36-46); Hemoglobin 9.2 g/dL (12.0-16.0); Lymphocytes Absolute Auto 1600 /uL (1100-4500); Mean Corpuscular HGB Conc 32.5 % (30-36); Mean Corpuscular Hemoglobin 30.7 PG (26-34); Mean Corpuscular Volume 94.5 fL (80-100); Platelet Count 219 X10^3/uL (150-400); Potassium 3.7 mmol/L (3.4-5.1); Sodium 141 mmol/L (137-145); Total Protein 6.4 g/dL (6.3-8.2)
[2025-07-21 18:32] VITALS: BP 145/67; PULSE 88; O2SAT 95
[2025-07-21 18:59] VITALS: PULSE 85; O2SAT 98
[2025-07-21 19:00] VITALS: BP 135/72
--- NOTE | 2025-07-21 19:39 | DI.US.S_ITS ---
PROCEDURE: US PERIPH VENOUS LOW EXTREM BI INDICATIONS: Lower leg swelling, pain and elevated D-dimer TECHNIQUE: Real-time imaging, as well as color and pulse Doppler interrogation, were performed of the deep veins of both legs from the inguinal ligament to the popliteal fossa, with documentation of the visualized calf veins. COMPARISON: None. FINDINGS: Right: The common femoral, femoral, popliteal, and the visualized calf veins are normally compressible, and free of intraluminal thrombus. Color and pulse Doppler demonstrate normal phasic intravascular flow. There is normal augmentation response to distal compression maneuver. Left: The common femoral, femoral, popliteal, and the visualized calf veins are normally compressible, and free of intraluminal thrombus. Color and pulse Doppler demonstrate normal phasic intravascular flow. There is normal augmentation response to distal compression maneuver. IMPRESSION: No findings of deep venous thrombosis in either lower extremity. Dictated by: Sofía Alvarez M.D. on 07/21/2025 at 21:38 Approved by: Sofía Alvarez M.D. on 07/21/2025 at 21:38
[2025-07-21 21:01] VITALS: BP 133/63; PULSE 76; RESP 18; O2SAT 100
== END 2025-07-21 20:59 | disposition home or self-care (01) ==
PROVIDERS: Emergency Provider Emergency Medicine; PCP Family Medicine
DX: R60.0 Localized edema (principal); M79.642 Pain in left hand; D64.9 Anemia, unspecified
CPT/HCPCS: 36415; 80053; 85025; 85379; 85651; 93970; 99283; 99284